=== PATIENT | male | born 1985 | race Caucasian/White ===

== ENCOUNTER 2017-05-13 12:45 | Emergency (ER) | payer SELFPAY ==
[~2017-05-13] VITALS: Ht 162.6 cm; Wt 80.0 kg
[2017-05-13 12:48] VITALS: BP 158/100
== END 2017-05-13 18:21 | disposition left against medical advice (07) ==
LOC: ER 18:20
DX: Z53.21 Procedure and treatment not carried out due to patient leaving prior to being seen by health care provider (principal)

== ENCOUNTER 2017-10-14 20:09 | Emergency (ER) | payer MEDICAID ==
[~2017-10-14] VITALS: Ht 167.6 cm; Wt 81.0 kg
[~2017-10-14 20:09] MED LIST: DILT240C3 PO; HYDR-4001 PO; HYDR25TA PO; IBUP-2030 PO; LEVO500T89 PO
[2017-10-14] MEDS ORDERED: KETOROLAC 30MG/ML VIAL IM STA (22:14)
[2017-10-14] MEDS ORDERED: ONDANSETRON 4MG ODT PO STA (22:14)
[2017-10-14 22:44] LABS: INR 1.1
[2017-10-14 22:45] VITALS: BP_SYST 134
[2017-10-14 22:50] LABS: CARBON DIOXIDE 23 mEq/L (21-32); CHLORIDE 107 mEq/L (98-107)
[2017-10-14 22:51] LABS: HEMATOCRIT. 34.6 % (42.0-52.0); HEMOGLOBIN. 11.6 g/dL (14.0-18.0); MEAN CORPUSCULAR HEMOGLOBIN 29.2 pg (28.0-32.0); MEAN CORPUSCULAR VOLUME 87.4 fL (80.0-94.0); MEAN PLATELET VOLUME 8.6 fl (7.4-10.4); PLATELET 542 x1000/uL (130-400); RED BLOOD CELL COUNT 3.96 mill/uL (4.7-6.1); RED CELL DISTRIBUTION WIDTH 13.5 % (11.6-14.6)
[2017-10-14 23:10] LABS: PLATELET ESTIMATE INCREASED
[2017-10-15 01:00] VITALS: BP_DIAS 110
[2017-10-15 01:34] LABS: CLARITY URINE CLEAR (CLEAR); COLOR URINE YELLOW (YELLOW); KETONES URINE NEGATIVE (NEGATIVE); LEUKOCYTE ESTERASE URINE TRACE (NEGATIVE); NITRITE URINE NEGATIVE (NEGATIVE); OCCULT BLOOD URINE NEGATIVE (NEGATIVE); PROTEIN URINE NEGATIVE (NEGATIVE); UROBILINOGEN URINE 0.2 E.U./dL (0.2-1.0)
== END 2017-10-15 01:30 | disposition home or self-care (01) ==
LOC: ER 20:25
DX: Z48.03 Encounter for change or removal of drains (principal); R74.8 Abnormal levels of other serum enzymes; I10 Essential (primary) hypertension; Z98.890 Other specified postprocedural states
CPT/HCPCS: 36415; 80053; 81001; 83690; 85025; 85610; 96372; 99284; J1885; Q0162

== ENCOUNTER 2018-09-26 15:59 | Emergency (ER) | payer MEDICAID ==
[~2018-09-26] VITALS: Ht 172.7 cm; Wt 90.0 kg
[2018-09-26] MEDS ORDERED: SODIUM CHLORIDE 0.9% 1,000 ML IV ONE (16:46)
[2018-09-26] MEDS: SODIUM CHLORIDE 0.9% 1,000 ML IV NR ×2 (17:30→17:31)
[2018-09-26 19:02] VITALS: BP 123/77
== END 2018-09-26 19:03 | disposition left against medical advice (07) ==
LOC: ER 15:59
DX: T20.10XA Burn of first degree of head, face, and neck, unspecified site, initial encounter (principal); T20.112A Burn of first degree of left ear [any part, except ear drum], initial encounter; T20.111A Burn of first degree of right ear [any part, except ear drum], initial encounter; X04.XXXA Exposure to ignition of highly flammable material, initial encounter; Y93.89 Activity, other specified; Y92.018 Other place in single-family (private) house as the place of occurrence of the external cause
CPT/HCPCS: 96360; 96361; 99283; J7030